=== PATIENT | female | born 1980 | race Caucasian/White ===

== ENCOUNTER 2017-02-24 01:43 | Inpatient (IN) | payer BC ==
[2017-02-24] VITALS (36 sets, daily range): BP systolic 15–166; BP diastolic 57–88
[~2017-02-24] VITALS: Ht 154.9 cm; Wt 70.8 kg
[~2017-02-24 01:43] MED LIST: DCS100C PO; ETHINYL ESTRADIOL; FRS325T PO; HYDR1TAB PO; NORGESTIMATE; OXYC-12 PO; OXYC1TAB12 PO; PREN1TAB39 PO
[2017-02-24] MEDS ORDERED: VALA1000 PO (02:10)
[2017-02-24] MEDS ORDERED: LACT1CAP64 PO (02:10)
[2017-02-24] MEDS ORDERED: D5 LR IV SOLUTION 1,000 ML IV ONE (02:11)
[2017-02-24] MEDS: D5 LR IV SOLUTION 1,000 ML IV SCH ×2 (02:25→10:18)
[2017-02-24 02:48] LABS: BASOPHILS % (AUTO) 0 % (0-10); EOSINOPHILS # (AUTO) 0.1 10^3/uL (0.0-0.3); EOSINOPHILS % (AUTO) 1 % (0-10); LYMPHOCYTES # (AUTO) 1.8 X 10^3 (1.0-4.0); LYMPHOCYTES % (AUTO) 15 % (12-44); MEAN CORPUSCULAR HEMOGLOBIN 31 PG (25-34); MEAN CORPUSCULAR HGB CONC 35 G/DL (32-36); MEAN CORPUSCULAR VOLUME 91 FL (80-99); MEAN PLATELET VOLUME 10.8 FL (7.4-10.4); MONOCYTES % (AUTO) 8 % (0-12); NEUTROPHILS # (AUTO) 9.3 X 10^3 (1.8-7.8); NEUTROPHILS % (AUTO) 76 % (42-75); PLATELET COUNT 155 10^3/uL (130-400); RED BLOOD COUNT 3.89 10^6/uL (4.35-5.85); RED CELL DISTRIBUTION WIDTH 13.1 % (10.0-14.5); WHITE BLOOD COUNT 12.2 10^3/uL (4.3-11.0)
[2017-02-24] MEDS ORDERED: OXYTOCIN/NORMAL SALINE 500 ML IV SCH ×3 (05:48→07:55)
[2017-02-24] MEDS: CATHETER FLUSH 10 ML SYR IV SCH ×2 (06:35→15:48)
[2017-02-24] MEDS ORDERED: SUFENTA 0.6MCG/ML BUPIVA 0.125 100 ML ONE (07:10)
[2017-02-24] MEDS ORDERED: LACTATED RINGERS 1,000 ML IV ONE (07:17)
[2017-02-24] MEDS ORDERED: fentaNYL INJECTION 100 MCG/2 ML AMP ONE (07:51)
[2017-02-24] MEDS ORDERED: LIDOCAINE PF 2% 5 ML (XYLOCAINE) VIAL ONE (07:51)
[2017-02-24] MEDS ORDERED: BUPIVACAINE 0.25% 30 ML (SENSORCAINE) VIAL ONE (07:51)
[2017-02-24] MEDS ORDERED: oxyCODONE/APAP 10/325MG (PERCOCET 10) TABLET PO PRN (08:00)
[2017-02-24] MEDS ORDERED: TETANUS,DIPTH,PERTUSS P/F (BOOSTRIX) 0.5 ML VIAL IM ONE (08:00)
[2017-02-24] MEDS ORDERED: BENZOCAINE/MENTHOL (DERMOPLAST) 56 ML CAN TP PRN (08:00)
--- NOTE | 2017-02-24 08:04 | History & Physical ---
History and Physical Date Seen by Provider: Feb 24, 2017 Time Seen by Provider: 08:00 this patient is a 35-year-old white female with an EDC of [phone] putting her now at 39-5/7 weeks' gestation she presented in the early hours of the morning with painful contractions. Her cervix was 3-3-1/2 cm on admission now she is 4 cm dilated 70 percent effaced and 0 station vertex presentation with a bulging bag. Amniotomy is performed releasing clear fluid. Patient's has been uncomplicated to date. She had a GBS culture after 35 weeks gestation that was negative. Patient denies rupture membranes or bleeding. allergies are to ibuprofen which causes her to swell Medications are vitamins Past medical history, past surgical history, obstetric history, family history, and social histories are per the antepartum record HEENT exam is normal Neck is supple no lymphadenopathy no thyromegaly Abdomen is gravid soft nontender nondistended Extremities show no clubbing or cyanosis. There is no Homans sign. Pelvic exam reveals a cervix 4 to 4.5 cm dilated very soft mid to anterior presenting part is the vertex at the 0 station. There is a bulging bag. Amniotomy is performed releasing copious clear fluid. monitor shows contractions every 4-6 minutes. Normal heart rate pattern. Laboratory Tests 02/24/17 02:20 Assessment and plan term at 39-5/7 weeks' gestation in early labor. Amniotomy has been performed patient will be allowed with epidural. We anticipate a vaginal delivery. 39+ week in labor Allergies and Home Medications Allergies Coded Allergies: ibuprofen (Unverified Allergy, 11/15/09) Home Medications Lactobacillus Combo No.11 1 Each Cap.sprink, 1 EACH PO DAILY, (Reported) Vits W-Ca,Fe,Fa(<1MG) 1 Each Tablet, 1 EACH PO DAILY, (Reported) Valacyclovir HCl 1,000 Mg Tablet, 1,000 MG PO DAILY, (Reported) Clinical Quality Measures DVT/VTE Risk/Contraindication: Risk Factor Score Per Nursin RFS Level Per Nursing on Admit: 1=Low/No VTE PPX GROVER AGUILERA MD Feb 24, 2017 8:04 am
[2017-02-24] MEDS ORDERED: LACTATED RINGERS 1,000 ML IV SCH (08:20)
[2017-02-24] MEDS ORDERED: diphenhydrAMINE 50 MG/ML INJ (BENADRYL) IV PRN (08:30)
[2017-02-24] MEDS ORDERED: ONDANSETRON 4 MG/2 ML (SDV) Z0FRAN IV PRN (08:30)
[2017-02-24] MEDS ORDERED: EPIDURAL (SUFENTA 0.6MCG/ML BUPIVA 0.125%) 100 ML BAG EPI PRN (08:30)
[2017-02-24] MEDS ORDERED: NALOXONE 0.4 MG/ML 1 ML (NARCAN) VIAL IV PRN (08:30)
[2017-02-24] MEDS: DOCUSATE SODIUM 100 MG (COLACE) CAP PO SCH ×2 (09:23→21:05)
[2017-02-24] MEDS ORDERED: LIDOCAINE/EPI 2% 1:200,00 (XYLOCAINE) 10 ML VIAL ONE (10:11)
[2017-02-24] MEDS ORDERED: LIDOCAINE/EPI 1%-1:200,000 (XYLOCAINE) 30 ML VIAL INJ PRN (12:30)
[2017-02-24] MEDS ORDERED: WITCH HAZEL(TUCKS) 40 EA JAR ONE (12:57)
[2017-02-25] MEDS ORDERED: ACETAMINOPHEN 500 MG TAB (TYLENOL) ONE (03:53)
[2017-02-25 04:00] VITALS: BP 104/66
[2017-02-25] MEDS: ACETAMINOPHEN 500 MG TAB (TYLENOL) PO PRN ×2 (04:00→10:28)
--- NOTE | 2017-02-25 07:19 | Progress Note-Standard ---
Standard Progress Note Progress Notes/Assess & Plan Date Seen by Provider: Feb 25, 2017 Time Seen by Provider: 07:18 Progress/Assessment & Plan this patient is without complaint. She is ambulating, voiding, tolerating it well, has good pain control. Vital Signs Date Time Temp Pulse Resp B/P (MAP) Pulse Ox O2 Delivery O2 Flow Rate FiO2 02/24/17 21:30 97.6 84 16 106/60 98 Room Air 02/24/17 16:41 97.4 87 18 95/57 96 Room Air 02/24/17 14:13 98.3 95 18 104/60 100 Room Air 02/24/17 12:40 89 18 99/64 Room Air 02/24/17 12:25 98.0 89 18 101/65 Room Air 02/24/17 12:10 89 18 99/64 Room Air 02/24/17 11:55 96 18 103/65 Room Air 02/24/17 11:40 105 18 111/71 Room Air 02/24/17 11:25 107 18 104/66 Room Air 02/24/17 11:20 97.9 18 125/76 Room Air 02/24/17 11:15 88 18 124/70 Room Air 02/24/17 11:10 103 18 110/62 Room Air 02/24/17 11:05 90 18 109/64 Room Air 02/24/17 11:04 97.5 02/24/17 11:00 80 18 15/70 Room Air 02/24/17 10:56 75 18 111/65 Room Air 02/24/17 10:42 107 18 166/85 Room Air 02/24/17 10:40 75 18 122/71 Room Air 02/24/17 10:30 82 18 124/77 91 Room Air 02/24/17 10:15 78 18 110/68 96 Room Air 02/24/17 10:00 98.2 81 18 119/88 98 Room Air 02/24/17 09:45 76 18 107/63 98 Room Air 02/24/17 09:30 74 18 110/61 97 Room Air 02/24/17 09:15 75 18 112/66 97 Room Air 02/24/17 09:00 76 18 116/67 98 Room Air 02/24/17 08:45 85 18 110/66 99 Room Air 02/24/17 08:30 79 18 109/64 98 Room Air 02/24/17 08:15 97.5 84 18 113/67 100 Room Air 02/24/17 08:11 88 18 113/65 99 Room Air 02/24/17 08:09 80 18 112/66 99 Room Air 02/24/17 08:08 81 18 122/72 98 Room Air 02/24/17 08:02 73 18 112/67 97 Room Air 02/24/17 08:00 71 18 115/68 Room Air 02/24/17 07:45 80 18 118/71 Room Air 02/24/17 07:30 97.0 80 18 120/71 Room Air vital signs are stable. Patient is afebrile. Fundus is firm below the umbilicus and nontender. Extremities show no clubbing cyanosis. There is no Homans sign. There is minimal pretibial pitting edema. Assessment and plan post day number 1 status post term spontaneous vaginal delivery doing well. Plan is for discharge home tomorrow although if patient request discharge home today that will be allowed Final Diagnosis term spontaneous vaginal delivery at 39-5/7 weeks' gestation GROVER AGUILERA MD Feb 25, 2017 7:19 am
[2017-02-25] MEDS ORDERED: DOCU100C37 PO (07:20)
[2017-02-25] MEDS ORDERED: OXYC-465 PO (07:20)
--- NOTE | 2017-02-25 07:22 | Discharge Instructions ---
Discharge Instructions Discharge Medications New, Converted or Re-Newed RX: RX on Chart Patient Instructions Patient Instructions: as directed Return to The Hospital For: as directed Activity & Diet Discharge Diet: No Restrictions Activity as Tolerated: No Orders-Post D/C & Referrals Follow Up Appt: Call to make follow up appt. for patient in 4 weeks. Activity Per routine post vaginal delivery instructions. Diet as tolerated Patient may shower or tub bathe as desired. GROVER AGUILERA MD Feb 25, 2017 7:22 am
[2017-02-25 08:45] VITALS: BP 105/63
--- NOTE | 2017-02-25 09:32 | OPERATIVE REPORT ---
DATE OF SERVICE: 02/24/2017 DELIVERY NOTE: The patient delivered by term spontaneous vaginal delivery a viable female infant with Apgars of 9 and 9 at 1 and 5 minutes. weight of 8 pounds 1 ounce. Cord arterial blood pH of 7.32, time of 10:44. The infant delivered over a midline episiotomy under epidural augmented by local analgesia. The was bulb suctioned on delivery of the head and again on completion of delivery. The 's pulse was down in the 80s for 4-5 minutes with mom pushing but unable to effect delivery, then an episiotomy was made to shorten the second stage of labor secondary to the decreased heart rate. The delivery was atraumatic. The umbilical cord was doubly clamped, father cut the cord, and the was passed to baby's mom. The placenta delivered spontaneously Guerrero. It was normal with a 3-vessel cord. The uterus, vagina, cervix and rectum were examined and found intact except for the midline episiotomy, which was repaired with a single suture of 3-0 Vicryl in the usual manner to good hemostasis. Sponge and needle counts were correct on completion of the delivery and the repair. Estimated blood loss was around 350 mL. The patient tolerated the delivery and the repair well and remained in the LDR for recovery. The baby remained with the mom. Job ID: [id number] DocumentID: [id number] Dictated Date: 02/24/2017 11:05:52 Network Intelligence Analyst Date: 02/25/2017 01:47:24 Dictated By: GROVER AGUILERA MD MTDD
--- NOTE | 2017-02-25 14:08 | Anesthesia-Regional Post-Op ---
Regional Patient Condition Mental Status: Alert, Oriented x3 Circulation: Same as Pre-Op Headache: Absent Sensation: Full Recovery Motor Block: Absent Post Op Complications Complications None Follow Up Care/Instructions Patient Instructions None needed. Anesthesia/Patient Condition Patient is doing well, no complaints, stable vital signs, no apparent adverse anesthesia problems. No complications reported per nursing. MAYCOL EMMANUEL CRNA Feb 25, 2017 14:08
[2017-02-25 15:00] VITALS: BP 106/58
[2017-02-25] MEDS ORDERED: TETANUS,DIPTH,PERTUSS P/F (BOOSTRIX) 0.5 ML VIAL IM ONE (15:34)
== END 2017-02-25 16:45 | disposition home or self-care (01) | DRG 775 ==
LOC: LDRP 01:43 → WSo 01:43 → LDRP 05:35 → WSo 05:35 → LDRP 13:15
PROVIDERS: ADMIT Obstetrics & Gynecology; ATTEND Obstetrics & Gynecology
PROC: 10E0XZZ Delivery of Products of Conception, External Approach (ICD-10-PCS; principal; 2017-02-24)
PROC: 0W8NXZZ Division of Female Perineum, External Approach (ICD-10-PCS; 2017-02-24)
DX: O80 Encounter for full-term uncomplicated delivery (principal); Z37.0 Single live birth; Z3A.39 39 weeks gestation of pregnancy; Z23 Encounter for immunization
CPT/HCPCS: 36415; 85025; 86850; 86900; 86901; 90715

== ENCOUNTER → 2017-05-27 | Outpatient (CLI) | payer BC ==
[~2017-05-27] MED LIST changes: +DOCU100C37 PO; +LACT1CAP64 PO; +OXYC-465 PO; +VALA1000 PO
--- NOTE | 2017-05-27 10:50 | Diagnostic Imaging Report ---
PROCEDURE: US Gallbladder. TECHNIQUE: Multiple real-time grayscale images were obtained over the right upper quadrant in various projections. INDICATION: Right upper quadrant pain. FINDINGS: The pancreas appears unremarkable. The liver is fairly homogeneous with no focal lesion seen. Hepatopedal flow in the portal vein is noted. The gallbladder demonstrates multiple mobile stones. The gallbladder wall is not thickened. No pericholecystic fluid is seen. The CBD is 3 mm in caliber. No fluid collection in the upper right abdomen seen. The right kidney is 11.4 CM in length with no hydronephrosis or focal lesion. Sonographic Montelongo sign is reportedly negative. IMPRESSION: Cholelithiasis. Dictated by: Dictated on workstation # [id number]
== END ==
LOC: RAD 09:23
PROVIDERS: ATTEND Family Medicine
DX: K80.20 Calculus of gallbladder without cholecystitis without obstruction (principal)
CPT/HCPCS: 76705

== ENCOUNTER 2017-06-11 05:49 | Outpatient (CLI) | payer BC ==
[~2017-06-11] VITALS: Ht 154.9 cm; Wt 57.6 kg
[2017-06-11] MEDS ORDERED: DOCU-143 PO (10:14)
[2017-06-11] MEDS ORDERED: FAMO40TA72 PO (10:14)
[2017-06-11] MEDS ORDERED: PREN1TAB86 PO (10:14)
[2017-06-11] MEDS ORDERED: INUL1TAB3 PO (10:14)
== END 2017-06-11 11:06 ==
LOC: PREOP 05:49
PROVIDERS: ATTEND Surgery
DX: Z01.818 Encounter for other preprocedural examination (principal); K80.20 Calculus of gallbladder without cholecystitis without obstruction

== ENCOUNTER 2017-06-19 08:09 | Day surgery (SDC) | payer BC ==
[~2017-06-19] VITALS: Ht 154.9 cm; Wt 57.6 kg
[~2017-06-19 08:09] MED LIST changes: +DOCU-143 PO; +FAMO40TA72 PO; +INUL1TAB3 PO; +PREN1TAB86 PO
[2017-06-19 08:15] VITALS: BP 116/73
[2017-06-19] MEDS ORDERED: ceFAZolin 1 GM/NS 50 ML IVPB IV ONE ×2 (08:30)
[2017-06-19] MEDS ORDERED: LACTATED RINGERS 1,000 ML IV PRN (08:46)
[2017-06-19 08:49] LABS: BASOPHILS % (AUTO) 1 % (0-10); EOSINOPHILS # (AUTO) 0.3 10^3/uL (0.0-0.3); EOSINOPHILS % (AUTO) 6 % (0-10); HEMATOCRIT 37 % (35-52); HEMOGLOBIN 12.9 G/DL (11.5-16.0); LYMPHOCYTES # (AUTO) 2.1 X 10^3 (1.0-4.0); LYMPHOCYTES % (AUTO) 41 % (12-44); MEAN CORPUSCULAR HEMOGLOBIN 29 PG (25-34); MEAN CORPUSCULAR HGB CONC 35 G/DL (32-36); MEAN CORPUSCULAR VOLUME 83 FL (80-99); MEAN PLATELET VOLUME 9.6 FL (7.4-10.4); MONOCYTES # (AUTO) 0.4 X 10^3 (0.0-1.0); MONOCYTES % (AUTO) 8 % (0-12); NEUTROPHILS # (AUTO) 2.3 X 10^3 (1.8-7.8); NEUTROPHILS % (AUTO) 44 % (42-75); PLATELET COUNT 229 10^3/uL (130-400); RED BLOOD COUNT 4.49 10^6/uL (4.35-5.85); RED CELL DISTRIBUTION WIDTH 12.3 % (10.0-14.5); WHITE BLOOD COUNT 5.1 10^3/uL (4.3-11.0)
[2017-06-19] MEDS ORDERED: ceFAZolin INJECTION 1,000 MG in NS (IVPB) 50 ML IV ONE (09:15)
[2017-06-19] MEDS ORDERED: BUP/EPI 0.5% 1:200,000 (MARCAINE) 10ML VIAL IJ ONE (09:34)
--- NOTE | 2017-06-19 09:51 | Progress Note-Pre Operative ---
Pre-Operative Progress Note H&P Reviewed The H&P was reviewed, patient examined and no changes noted. Date Seen by Provider: Jun 19, 2017 Time Seen by Provider: 09:45 Date H&P Reviewed: Jun 19, 2017 Time H&P Reviewed: 09:45 Pre-Operative Diagnosis: symptomatic chronic calculous cholecystitis. JUVENTINO KAY MD Jun 19, 2017 9:51 am
[2017-06-19] MEDS ORDERED: MIDAZOLAM 2 MG/2 ML (VERSED) VIAL ONE (09:55)
[2017-06-19] MEDS ORDERED: fentaNYL INJECTION 100 MCG/2 ML AMP ONE (09:55)
[2017-06-19] MEDS ORDERED: ACETAMINOPHEN 325 MG TABLET/CAPLET (TYLENOL) PO PRN (10:00)
[2017-06-19] MEDS ORDERED: ONDANSETRON 4 MG/2 ML (SDV) Z0FRAN IVP PRN ×2 (10:00→11:30)
[2017-06-19] MEDS ORDERED: morphine INJ 10 MG/ML 1ML (SYR OR VIAL) IVP PRN (10:00)
[2017-06-19] MEDS ORDERED: HYDROcodone/APAP 5 MG/325 MG (LORTAB) TAB PO ONE (10:00)
[2017-06-19] MEDS ORDERED: GLYCOPYRROLATE 0.2 MG/ML (ROBINUL) 2 ML VIAL ONE (11:01)
[2017-06-19] MEDS ORDERED: ONDANSETRON 4 MG/2 ML (SDV) Z0FRAN ONE (11:01)
[2017-06-19] MEDS ORDERED: SEVOFLURANE (ULTANE) 15 ML INHAL SOLN ONE (11:01)
[2017-06-19] MEDS ORDERED: ROCURONIUM 50 MG/5 ML (ZEMURON) VIAL IV ONE (11:01)
[2017-06-19] MEDS ORDERED: proPOfol 200 MG/20 ML (DIPRIVAN) VIAL IV ONE (11:01)
[2017-06-19] MEDS ORDERED: NEOSTIGMINE (BLOXIVERZ ) 1 MG/1ML 10 ML VIAL ONE (11:01)
[2017-06-19] MEDS ORDERED: DEXAMETHASONE 10 MG/ML (DECADRON) 1 ML VIAL ONE (11:01)
[2017-06-19] MEDS ORDERED: LIDOCAINE PF 2% 5 ML (XYLOCAINE) VIAL ONE (11:01)
--- NOTE | 2017-06-19 11:16 | Progress Note-Post Operative ---
Post-Operative Progess Note Surgeon (s)/Strip Deburrer (s) Surgeon JUVENTINO KAY MD Strip Deburrer: jayy willis APRN Pre-Operative Diagnosis symptomatic chronic calculous cholecystitis. Post-Operative Diagnosis same Procedure & Operative Findings Date of Procedure 06/19/17 Procedure Performed/Findings laparoscopic cholecystectomy. Anesthesia Type GET Estimated Blood Loss Estimated blood loss (mL): minimal Specimens/Packing Specimens Removed gallbladder JUVENTINO KAY MD Jun 19, 2017 11:16 am
[2017-06-19] MEDS ORDERED: HYDR-3816 PO (11:19)
--- NOTE | 2017-06-19 11:20 | Discharge Inst-Surgical ---
D/C Lap Instructions-ELIZA New, Converted, or Re-Newed RX: RX on Chart Follow Up Appt in 2 weeks Activity as tolerated No driving for 24 hours No [address] while on pain medications Incentive Spirometry use every 2 hours while awake Regular Diet Symptoms to Report: Fever over 101 degree F, Nausea/Vomiting Infection Signs and Symptoms to report: Increased redness, Foul odor of wound, Increased drainage Bathing instructions: May shower Operative Area Clean/Dry; Keep incision clean/dry If any problems/questions: Contact your physician or go to Emergency Room JUVENTINO KAY MD Jun 19, 2017 11:20 am
[2017-06-19] MEDS ORDERED: MEPERIDINE (DEMEROL) INJ 50 MG/ML IVP PRN (11:30)
[2017-06-19] MEDS: morphine INJ 10 MG/ML 1ML (SYR OR VIAL) IVP PRN ×2 (11:30→11:38)
[2017-06-19 12:15] VITALS: BP 112/71
[2017-06-19 12:45] VITALS: BP 116/72
[2017-06-19 13:15] VITALS: BP 108/71
--- NOTE | 2017-06-19 15:42 | OPERATIVE REPORT ---
DATE OF SERVICE: 06/19/2017 ATTENDING PRIMARY CARE PHYSICIAN: Delicia Ghosh MD PREOPERATIVE DIAGNOSIS: Symptomatic chronic calculous cholecystitis. POSTOPERATIVE DIAGNOSIS: Symptomatic chronic calculous cholecystitis. PROCEDURE: Laparoscopic cholecystectomy. SURGEON: Juventino Kay MD CERTIFIED ACTIVITIES DIRECTOR: Wero Gibson APRN. ANESTHESIA: General endotracheal. ESTIMATED BLOOD LOSS: Minimal. FINDINGS: Mild gallbladder wall dilatation as well as multiple gallstones. DISPOSITION: The patient tolerated the procedure well. INDICATION FOR PROCEDURE: The patient is a 37-year-old female, who has had pain in the right upper abdominal quadrant as well as the epigastric region with radiation towards the back. She reports that she has had this for some amount of time; however, during the last phase of her approximately 3 to 4 months ago, she did have much worse pain as well as more frequent. An ultrasound was performed, which did show multiple gallstones. She states some nausea; however, no vomiting. She does not report any nausea, diarrhea or constipation as well as no fever and no chills. DESCRIPTION OF PROCEDURE: The patient was brought to the operating room, laid supine on the table. After adequate IV pain and sedative medications and general endotracheal intubation, the abdomen was prepped and draped in standard surgical fashion. A 0.5% Marcaine with epinephrine was then used to anesthetize the overlying skin in the left upper abdominal quadrant and a skin incision made using a 15 blade. An 0 silk suture was applied to the medial aspect of the incision for retraction and a Veress needle was inserted with a low opening pressure of 0 mmHg. The abdomen was then insufflated to 15 mmHg pressure. The Veress needle removed and a 5 mm Xcel trocar placed followed by a 5 mm 45 degree angle laparoscope visualizing the peritoneal cavity. Four quadrant abdominal explorations were performed. What was visualized of the liver, stomach, small bowel, omentum, appeared normal. There was mild gallbladder wall dilatation. We then proceeded with placement of a supraumbilical 10 mm port after the skin and peritoneal lining were anesthetized using 0.5% Marcaine with epinephrine and a transverse skin incision made using a 15 blade. In a similar manner, a right upper abdominal quadrant 5 mm port was placed. The patient was placed in reverse Trendelenburg position as well as plane right side up, left side down. The fundus of the gallbladder was then retracted anteriorly and superiorly. The hepatoduodenal ligament was then opened using electrocautery on the hook instrument as well as blunt dissection. The entire critical view of safety was identified including the triangle of Calot as well as the cystic duct and artery as the only two structures going into the gallbladder as well as the cystic plate behind the proximal gallbladder. A timeout was then taken and the cystic duct and artery were then clipped proximally and distally and cut with EndoShears. The gallbladder was then dissected off the liver bed using electrocautery on the hook instrument with visualization, good hemostasis as well as no leaking ducts of Luschka. The gallbladder was removed through the 10 mm port site using an EndoCatch bag. The 10 mm port site fascia and peritoneum were then closed under direct visualization using a Sohan-Kaylah device and 0 Vicryl suture. The abdomen was desufflated and the remaining ports removed. All skin incisions were closed using 4-0 Monocryl running subcuticular sutures. Wounds were then cleaned and covered with Dermabond. The gallbladder was examined on the back table with multiple gallstones identified. The patient tolerated the procedure well. We will start IV and oral pain medications as well as a clear liquid diet. Once she is tolerating clears, has good pain control with oral pain medications and is ambulating well, we will discharge her home. Job ID: [id number] DocumentID: [id number] Dictated Date: 06/19/2017 11:27:03 Steam Finisher Date: 06/19/2017 15:41:53 Dictated By: JUVENTINO KAY MD [facility]
== END 2017-06-19 14:55 | disposition home or self-care (01) ==
LOC: SDC 08:09
PROVIDERS: ATTEND Surgery
DX: K80.10 Calculus of gallbladder with chronic cholecystitis without obstruction (principal); K59.09 Other constipation
CPT/HCPCS: 36415; 84703; 85025; 87081; 88304

== ENCOUNTER → 2019-05-04 | Outpatient (CLI) | payer BC ==
[~2019-05-04] MED LIST changes: +HYDR-34 PO
--- NOTE | 2019-05-04 12:43 | Diagnostic Imaging Report ---
INDICATION: Routine screening. No prior mammograms are available for comparison. This is a baseline mammogram. 2-D and 3-D bilateral screening mammography was performed with CAD. Both breasts are heterogeneously dense, limiting the sensitivity of mammography. No mass or malignant appearing microcalcifications are seen. Axillae are unremarkable. IMPRESSION: BI-RADS Category 1 No mammographic features suspicious for malignancy are identified. ACR BI-RADS Category 1: Negative. Result letter will be mailed to the patient. Note: At least 10% of breast cancer is not imaged by mammography. Dictated by: Dictated on workstation # [id number]
== END ==
LOC: RAD 08:49
PROVIDERS: ATTEND Obstetrics & Gynecology
DX: Z12.31 Encounter for screening mammogram for malignant neoplasm of breast (principal)
CPT/HCPCS: 77067

== ENCOUNTER → 2022-04-05 | Outpatient (CLI) | payer BC ==
[~2022-04-05] MED LIST changes: -OXYC-465 PO; +OXYC-556 PO; -VALA1000 PO; +VALA10007 PO
--- NOTE | 2022-04-05 11:35 | Diagnostic Imaging Report ---
Indication: Routine screening. Comparison is made with prior mammogram from 05/04/2019. 2-D and 3-D bilateral screening mammography was performed with CAD. Both breasts are heterogeneously dense, limiting the sensitivity of mammography. No mass or malignant-appearing microcalcifications are seen. Axillae are unremarkable. IMPRESSION: BI-RADS Category 1 No mammographic features suspicious for malignancy are identified. ACR BI-RADS Category 1: Negative. Result letter will be mailed to the patient. Note: At least 10% of breast cancer is not imaged by mammography. Dictated by: Dictated on workstation # [id number]
== END ==
LOC: RAD 08:53
PROVIDERS: ATTEND Obstetrics & Gynecology
DX: Z12.31 Encounter for screening mammogram for malignant neoplasm of breast (principal)
CPT/HCPCS: 77063; 77067

== ENCOUNTER → 2023-05-09 | Outpatient (CLI) | payer BC ==
--- NOTE | 2023-05-09 17:24 | Diagnostic Imaging Report ---
Indication: Routine screening. Comparison is made with prior mammograms 04/05/2022 and 05/04/2019. 2-D and 3-D bilateral screening mammography was performed with CAD. Both breasts are heterogeneously dense, limiting the sensitivity of mammography. The parenchymal pattern is stable. No mass or malignant-appearing microcalcifications are identified. Axillae are unremarkable. IMPRESSION: BI-RADS Category 1 No mammographic features suspicious for malignancy are identified. ACR BI-RADS Category 1: Negative. Result letter will be mailed to the patient. Note: At least 10% of breast cancer is not imaged by mammography. Dictated by: Dictated on workstation # [id number]
== END ==
LOC: RAD 08:56
PROVIDERS: ATTEND Obstetrics & Gynecology
DX: Z12.31 Encounter for screening mammogram for malignant neoplasm of breast (principal)
CPT/HCPCS: 77063; 77067